=== PATIENT | male | born 1935 | race Caucasian/White ===

== ENCOUNTER → 2018-09-12 | Outpatient (CLI) | payer MEDICARE, SELFPAY ==
[2018-09-12 11:04] LABS: PSA,Total- Diagnostic 1.56 ng/mL (0.0-4.0)
== END | disposition home or self-care (01) ==
LOC: LAB 10:19
PROVIDERS: Family Provider Internal Medicine; PCP Internal Medicine; Referring Provider Urology; Visit Provider Urology
DX: N40.2 Nodular prostate without lower urinary tract symptoms (principal)
CPT/HCPCS: 36415; 84153

== ENCOUNTER 2018-12-02 08:15 | Day surgery (SDC) | payer MEDICARE, SELFPAY ==
[2018-11-25 10:14] VITALS: BP 122/67; PULSE 55; RESP 18; TEMP 36.6; O2SAT 97; BMI 26.9
[2018-12-02] VITALS (14 sets, daily range): BP systolic 97–135; BP diastolic 53–92; PULSE 58–79; RESP 16–18; TEMP 36.1–37.1; O2SAT 91–99; BMI 26.9
[2018-12-02] MEDS: Lactated Ringers 1,000 ML 75 ML IV ×2 (09:16→13:02)
[2018-12-02] MEDS: Cefazolin 2 GM in 0.9% Normal Saline 100 ML IV (10:58)
--- NOTE | 2018-12-02 12:11 | OP.PCM_ITS ---
Report of Operation Date of Procedure: 12/02/18 Pre-Operative Diagnosis: BPH with obstruction Post-Operative Diagnosis: The same Surgery/Procedure Performed:: Cystoscopy and greenlight laser vaporization of the prostate Description of Surgical Findings:: 83-year-old male with obstructive voiding on exam he has a very large obstructive prostate with a large median lobe bilateral hypertrophy presents today for greenlight laser of the prostate we talked about the options of management including observation continue medical therapy transurethral resection of the prostate simple prostatectomy after all the options were discussed with the patient he wanted to proceed with greenlight laser of the prostate. We discussed the risk of the procedure including failure to improve urinary symptoms, recurrent bleeding, scar tissue formation, regrowth of tissue causing obstruction. 83-year-old male taken back to the operating room after smooth induction of anesthesia he was placed in dorsolithotomy position the penis and testicles were prepped and draped in usual sterile fashion went into the urethra with a 23 Persian laser bridge using the dicer machine operator lens to get into the bladder and a minimal traumatic fashion, once inside the bladder identified a large obstructing median lobe lateral lobes identified the verumontanum identified the left and right ureteral orifice I then switched over to the greenlight laser and started lasering composite tissue laser the median lobe down to was flat laser the right lateral tissue left lateral tissue laser all the way back to the verumontanum very carefully laser the apical tissue and the roof of the prostate had a nice wide open channel I then did a flow test could get get a decent flow and then at this point we completed laser took about an hour to laser completely used over 300,000 W of energy for lasering. At the end of the case with a 20 Persian catheter into the bladder and the urine was nice and clear patient anesthetic is currently being reversed. We checked for the ureteral orifices at the end the case the left and right ureter orifice were uninjured at the end of the procedure and were still patent. Type of Anesthesia:: General Drains: rojas 20 fr - Admit VTE Documentation VTE Present on Admission: No
--- NOTE | 2018-12-02 12:17 | PCM.DC.URO ---
Discharge Diet: Light diet - advance as tolerated Discharge Activity: Return to Normal Activity Call your doctor if your incision/area has: Continuous Slow Oozing, Sudden Increased Bleeding, Increased Pain/ Swelling, Increased Redness Call your doctor if you observe: Fever of 101 or Higher Suture Line Care: Avoid Pulling/Pushing, Avoid Pinching/Bending Allergies/Adverse Reactions: Allergies Antihistamines - Alkylamine Adverse Reaction (Verified 11/25/18 10:06) Other ciprofloxacin Adverse Reaction (Verified 11/25/18 10:06) Upset Stomach hydrocodone Adverse Reaction (Verified 11/25/18 10:06) Upset Stomach tramadol Adverse Reaction (Verified 11/25/18 10:06) Upset Stomach Medications to take at Discharge Lisinopril [Zestril] 20 mg PO DAILY 01/04/15 Vit C/E/Zn/Coppr/Lutein/Zeaxan [Preservision Areds 2 Softgel] 1 each PO DAILY 01/04/15 Acetaminophen [Tylenol Extra Strength] 500 mg PO PRN PRN 02/15/17 Aspirin E.C. [Ecotrin] 81 mg PO MOWEFR 02/15/17 Ginkgo Biloba 60 mg PO DAILY 02/15/17 Cholecalciferol (Vitamin D3) [Vitamin D3] 5,000 unit PO DAILY 11/25/18 Finasteride [Proscar] 5 mg PO DAILY 11/25/18 [place]-3/Dha/Epa/Fish Oil [[place] 3 500 Softgel] 1 ea PO DAILY 11/25/18 Pyridoxine HCl [Vitamin B-6] 100 mg PO DAILY 11/25/18 Saw/Vit E/Sod Cassidy/Lyc/Beta/Pyg [Prostate Health Caplet] 1 ea PO DAILY 11/25/18 Wheat Dextrin [Benefiber] 1 ea PO BID 11/25/18 Primary Care Physician: Vianca Simpson [Primary Care Provider] - Test Results: Test results from this visit will be discussed in further detail at your follow-up appointment, if applicable. Please Follow Up With: Hong Coronado MD When: in 2 weeks, please call to make an appointment.
--- NOTE | 2018-12-02 13:15 | EKG12_ITS ---
Test Reason : Blood Pressure : / mmHG Vent. Rate : 079 BPM Atrial Rate : 079 BPM P-R Int : 246 ms QRS Dur : 126 ms QT Int : 438 ms P-R-T Axes : 073 -41 033 degrees QTc Int : 502 ms Sinus rhythm with 1st degree A-V block with frequent and consecutive Premature ventricular complexes Left axis deviation Non-specific intra-ventricular conduction block Abnormal ECG Confirmed by OSIEL GAMA, PRINCESS ([id number]), industrial editor BETTY MATHEW ([id number]) on 12/07/2018 1:11:51 PM Referred By: Hong Coronado Confirmed By:PRINCESS CARTAGENA MD
[2018-12-02 13:58] LABS: Albumin, Serum 3.3 g/dL (3.2-5.0); Anion Gap 7 (5-15); BUN 15 mg/dL (7-18); BUN/Creat Ratio 13.9 RATIO (10-20); Calcium,Total 8.8 mg/dL (8.5-10.1); Chloride 108 mmol/L (98-107); Creatinine, Serum 1.08 mg/dL (0.70-1.30); EST Glomerular Filtration Rate 70 mL/min (>60); Est Glom Filt Rate - Afr Amer 84 mL/min (>60); Estimated Creatinine Clearance 56.17 ml/min; Glucose 125 mg/dL (74-106); Magnesium 2.2 mg/dL (1.6-2.6); Potassium 4.5 mmol/L (3.5-5.1); Sodium Level 141 mmol/L (136-145)
[2018-12-02] MEDS: Acetaminophen 325 MG Tablet PO (15:06)
[2018-12-02] MEDS: 0.9% Normal Saline 1,000 ML 75 ML IV (15:07)
[2018-12-02] MEDS: Ciprofloxacin 400 MG/200 ML BAG 200 MG IV (21:12)
[2018-12-03] MEDS: Acetaminophen 325 MG Tablet PO ×2 (02:48→10:43)
[2018-12-03 03:45] VITALS: BP 105/68; PULSE 54; RESP 16; TEMP 36.4; O2SAT 96
[2018-12-03] MEDS: 0.9% Normal Saline 1,000 ML 75 ML IV (03:50)
--- NOTE | 2018-12-03 08:06 | PCM.PN.BLA ---
Progress Note Postoperative day 1 status post laser of the prostate he is doing well urine nice and clear we will have the nurses remove the catheter and will do a voiding trial. If he is able to void successfully several times without any problems probably can go home today.
[2018-12-03] MEDS: Multivitamin (Healthy Eyes) Capsule 1 CAP PO (09:19)
[2018-12-03] MEDS: Finasteride 5 MG Tablet PO (09:19)
[2018-12-03] MEDS: Pantoprazole Sodium 40 MG Tablet PO (09:19)
[2018-12-03] MEDS: Lisinopril 20 MG Tablet PO (09:20)
[2018-12-03] MEDS: Pyridoxine HCl 100 MG Tablet PO (09:20)
[2018-12-03] MEDS: Ciprofloxacin 400 MG/200 ML BAG 200 MG IV (09:22)
[2018-12-03 09:38] VITALS: BP 105/61; PULSE 60; RESP 16; TEMP 36.5; O2SAT 96
[2018-12-03 12:58] VITALS: BP 125/65; PULSE 55; RESP 16; TEMP 36.8; O2SAT 98
[2018-12-03] MEDS: oxyCODONE 5 MG Tablet PO (13:21)
== END 2018-12-03 14:02 | disposition home or self-care (01) ==
LOC: SDC 08:15 → AC 08:17 → MS3 11:58
PROVIDERS: Anesthesiology; Family Provider Internal Medicine; PCP Internal Medicine; Referring Provider Urology; Visit Provider Urology
PROC: 0V508ZZ Destruction of Prostate, Via Natural or Artificial Opening Endoscopic (ICD-10-PCS; CPT 52648; principal; 2018-12-02 10:15)
DX: R39.14 Feeling of incomplete bladder emptying (principal); N39.41 Urge incontinence; I10 Essential (primary) hypertension; Z79.899 Other long term (current) drug therapy; Z85.828 Personal history of other malignant neoplasm of skin
CPT/HCPCS: 52630; 36415; 80048; 82040; 83735; 84484; 93005; J7030; J7120; A4216; J0744; J2405

== ENCOUNTER → 2021-09-02 | Outpatient (CLI) | payer MEDICARE, SELFPAY ==
[2021-09-02 17:55] LABS: Absolute Lymphocyte Count 2.19 X10^3/uL (0.83-4.51); Absolute Neutrophil Count 5.5 X10^3/uL (2.0-7.7); Basophil# 0.03 X10^3/uL; Basophil% 0.3 % (0-1); Eosinophil# 0.05 X10^3/uL; Eosinophils% 0.6 % (0-5); Hematocrit 40.7 % (40-54); Hemoglobin 13.9 g/dL (13.0-16.5); Lymphocyte # 2.19 X10^3/ul (0.83-4.51); Lymphocyte % 25.4 % (19-41); Mean Corp Hgb Conc 34.2 g/dL (32-36); Mean Corpuscular Hgb 34.6 pg (27.0-32.0); Mean Corpuscular Volume 101.2 fL (80-94); Mean Platelet Vol. 11.7 fl (6.2-12.0); Monocyte# 0.84 X10^3/uL; Monocyte% 9.8 % (0-10); NRBC Flagged by Analyzer 0 % (0-5); Neutrophil # 5.48 X10^3/uL (2.7-7.7); Neutrophil % 63.7 % (47-70); Platelet Count 240 K/mm3 (150-450); RBC Distribution Width CV 14.2 % (11.6-14.6); RBC Distribution Width SD 51.6 fl (35.1-43.9); Red Blood Count 4.02 M/mm3 (4.6-6.2); White Blood Count 8.6 K/mm3 (4.4-11.0)
[2021-09-02 18:14] LABS: ALB/GLOB Ratio 0.8 RATIO (0.9-2.4); AST(SGOT) 19 U/L (15-37); Alanine Aminotransfer ALT/SGPT 23 U/L (16-61); Albumin, Serum 3.9 g/dL (3.2-5.0); Alkaline Phosphatase 102 U/L (45-117); Anion Gap 4 (5-15); BUN 16 mg/dL (7-18); BUN/Creat Ratio 18.5 RATIO (10-20); Calcium,Total 9.4 mg/dL (8.5-10.1); Chloride 103 mmol/L (98-107); Creatinine, Serum 0.86 mg/dL (0.70-1.30); EST Glomerular Filtration Rate 89 mL/min (>60); Est Glom Filt Rate - Afr Amer 108 mL/min (>60); Globulin 4.7 g/dL (2.2-4.2); Glucose 95 mg/dL (74-106); Magnesium 2.3 mg/dL (1.6-2.6); Phosphorus 3.6 mg/dL (2.5-4.9); Potassium 3.8 mmol/L (3.5-5.1); Protein, Total 8.6 g/dL (6.4-8.2); Sodium Level 136 mmol/L (136-145); T4 Free Direct 0.85 ng/dL (0.76-1.46); Thyroid Stim Hormone (TSH) 1.29 uIU/mL (0.358-3.74)
[2021-09-02 19:55] LABS: PTHIN 34.6 pg/mL (18.4-80.1)
[2021-09-03 10:30] LABS: Erythrocyte Sedimentation Rate 28 mm/hr (0-20)
== END | disposition home or self-care (01) ==
LOC: MTLAB 14:54
PROVIDERS: PCP Internal Medicine; Referring Provider Internal Medicine Rheumatology; Visit Provider Internal Medicine Rheumatology
DX: M17.0 Bilateral primary osteoarthritis of knee (principal); E83.110 Hereditary hemochromatosis; M21.41 Flat foot [pes planus] (acquired), right foot; H35.30 Unspecified macular degeneration; I10 Essential (primary) hypertension; K21.9 Gastro-esophageal reflux disease without esophagitis; I45.10 Unspecified right bundle-branch block; F41.9 Anxiety disorder, unspecified; G47.33 Obstructive sleep apnea (adult) (pediatric); K57.90 Diverticulosis of intestine, part unspecified, without perforation or abscess without bleeding; I83.93 Asymptomatic varicose veins of bilateral lower extremities; Z87.442 Personal history of urinary calculi
CPT/HCPCS: 36415; 80053; 83735; 83970; 84100; 84439; 84443; 85025; 85652; 86140

== ENCOUNTER 2021-12-01 11:34 | Emergency (ER) | payer MEDICARE, SELFPAY ==
[2021-12-01 11:37] VITALS: BP 141/99; PULSE 53; RESP 16; TEMP 36.2; O2SAT 98; BMI 25.1
--- NOTE | 2021-12-01 11:58 | EKG12_ITS ---
Test Reason : bradycardia Blood Pressure : / mmHG Vent. Rate : 051 BPM Atrial Rate : 051 BPM P-R Int : 244 ms QRS Dur : 160 ms QT Int : 486 ms P-R-T Axes : 063 -58 011 degrees QTc Int : 447 ms Sinus bradycardia with 1st degree A-V block Right bundle branch block Left anterior fascicular block Bifascicular block Possible Lateral infarct , age undetermined Cannot rule out Inferior infarct (masked by fascicular block?) , age undetermined Abnormal ECG Confirmed by OSIEL GAMA, PRINCESS ([id number]), editor city BETTY MATHEW ([id number]) on 12/03/2021 9:38:06 AM Referred By: Mian Confirmed By:PRINCESS CARTAGENA MD
--- NOTE | 2021-12-01 11:59 | EX.ED.DYSGE1 ---
HPI History of Present Illness Chief Complaint: Chest Pain Detail of Chief Complaint: Bradycardia Informant: patient and other Narrative Narrative: Patient sent to the ER by Dr. Ann. Patient was in the office today for routine blood work secondary to hemochromatosis. Patient had mentioned to nursing staff that he was nauseated this morning but seem to be improved. Initial heart rate was noted to be 30. I believe this was noted on checking radial pulse. By the time EKG was applied heart rate was up in the 50s. Patient denied any chest pain. He has a known history of right bundle branch block but on today's EKG noted a new left anterior fascicular block. Patient denies any complaints at this time. [facility] Medical History Hemochromatosis Hypertension Home Medications lisinopril 10 mg tablet 20 mg PO DAILY blood pressure 01/04/15 [History Last Taken 12/02/18 05:00] vit C 250 mg-vit E 90 mg-zinc 40 mg-copper 1 mi-aydpil-lkrplb capsule (PreserVision AREDS-2) 1 ea PO DAILY eyes 01/04/15 [History Last Taken 02/17/17] acetaminophen 500 mg tablet (Tylenol Extra Strength) 500 mg PO PRN PRN Pain 02/15/17 [History Last Taken Unknown] aspirin 81 mg tablet,delayed release 81 mg PO MOWEFR heart 02/15/17 [History Last Taken 02/15/17] ginkgo biloba 60 mg capsule 60 mg PO DAILY supplement 02/15/17 [History Last Taken 02/17/17] cholecalciferol (vitamin D3) 125 mcg (5,000 unit) tablet 5,000 unit PO DAILY supplement 11/25/18 [History Last Taken Unknown] finasteride 5 mg tablet 5 mg PO DAILY prostate 11/25/18 [History Last Taken Unknown] omega 6-fke-uam-fish oil 500 mg (200mg-300mg)-1,000 mg capsule 1 ea PO DAILY supplement 11/25/18 [History Last Taken Unknown] pyridoxine (vitamin B6) 100 mg tablet 100 mg PO DAILY supplement 11/25/18 [History Last Taken Unknown] saw palm 160 mg-vit E 100 unit-selen 100 scx-apqp-patpcs-pygeum tablet 1 ea PO DAILY supplement 11/25/18 [History Last Taken Unknown] wheat dextrin 3 gram/3.5 gram oral powder packet 1 ea PO BID 11/25/18 [History Last Taken Unknown] cephalexin 500 mg capsule 500 mg PO Q8 #14 caps 12/02/18 [Rx Last Taken Unknown] Allergy/AdvReac Type Severity Reaction Status Date / Time Antihistamines - Alkylamine AdvReac Other Verified 12/01/21 12:01 ciprofloxacin AdvReac Upset Verified 12/01/21 12:01 Stomach hydrocodone AdvReac Upset Verified 12/01/21 12:01 Stomach tramadol AdvReac Upset Verified 12/01/21 12:01 Stomach Social History Smoking Status: Never smoker ROS ROS ED Constitutional Constitutional ED: Denies chills or fever(s) Eyes Eyes: Denies change in vision or discharge from eye(s) ENT ENT ED: Denies discharge from eye(s), rhinorrhea or sore throat Cardiovascular Cardiovascular: Denies chest pain or palpitations Respiratory/Chest Respiratory/Chest: Denies cough or dyspnea Gastrointestinal Gastrointestinal: Reports nausea; Denies abdominal pain, diarrhea or vomiting Genitourinary Genitourinary ED: Denies difficulty urinating or dysuria Musculoskeletal Musculoskeletal: Denies back pain or extremity pain Integumentary Denies Abrasions or rash Neurologic Neurologic: Denies headache(s) or weakness Allergic/Immunologic Allergic/Immunologic ED: Denies lip swelling or urticaria EXAM Physical Exam Const Vital Signs: 12/01/21 11:37 12/01/21 12:01 12/01/21 12:01 Temperature 97.2 F L Temperature Source Temporal Pulse Rate 53 L 56 L Respiratory Rate 16 16 Respiratory Effort Normal Non-Labored Blood Pressure 141/99 H Blood Pressure Mean 113 Pulse Ox 98 95 Oxygen Delivery Method Room Air Room Air Positive well nourished and well developed General Appearance ED: well developed HEENT Reports normocephalic and head/scalp atraumatic Eyes PERRL and EOMs intact bilaterally Neck supple Chest Wall inspection of chest normal and palpation of chest normal Resp normal respiratory effort and clear to auscultation bilaterally Cardio regular rhythm Rate: bradycardia Heart Sounds: murmur GI normal to inspection, nondistended, normoactive bowel sounds Palpation: soft Back/Spine no CVA tenderness Extremity normal to inspection Neuro oriented x3 and no sensory deficits noted Sensorium / Orientation: alert Motor Exam: strength 5/5 throughout Psych mental status grossly normal Skin no rashes or lesions noted MDM MDM MDM Narrative Medical decision making narrative: Patient denies having any chest pain throughout this episode. EKG and lab work obtained. CBC was performed this morning at [facility] therefore not repeated at this time. White count is normal at 7.3 and hemoglobin is 14.1. Chemistry studies and troponin obtained today along with chest x-ray. Lab Data Attestation: I reviewed the patient's lab results. Labs: Laboratory Results - last 24 hr 12/01/21 12:08 Sodium 139 Potassium 4.1 Chloride 105 Carbon Dioxide 29.0 Anion Gap 5 BUN 18 Creatinine 1.06 Estim Creat Clear Calc 54.26 Est GFR (MDRD) Af Amer 85 Est GFR (MDRD) Non-Af 71 BUN/Creatinine Ratio 17.0 Glucose 96 Calcium 9.4 Troponin I High Sens 8 Radiography Chest X-Ray - ED: 1 View, Read by ED Physician, Chronic Changes and Cardiomegaly (Mild cardiomegaly) EKG Initial EKG: Attestation: I personally reviewed and interpreted this EKG as follows: Interpretation: Sinus Bradycardia (Sinus bradycardia 51 bpm. Bifascicular block appreciated. 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 The EKG obtained at the oncology office does reveal frequent PVCs. My suspicion is that these were not palpable and therefore his heart rate was read low with the 30s. He states he has had a heart rate in the 50s for quite some time. He denies any lightheadedness, dizziness, chest pain. Chemistry studies today are unremarkable with normal potassium. Troponin is normal at 8. Patient will be discharged home with . He is to follow-up with his primary care physician for further evaluation. Discharge Plan Triage Chief Complaint: Chest Pain ED Provider: Aleida Campos Dx/Rx/DC Orders Clinical Impression: Bradycardia Instructions: ED Bradycardia Prescriptions: No Action lisinopril 10 MG tablet 20 mg PO DAILY vit C,Q-Io-dywvs-lutein-zeaxan [PreserVision AREDS-2] 1 EACH capsule 1 ea PO DAILY aspirin 81 MG tablet 81 mg PO MOWEFR Label Comments: stop aspirin [address] rodriguez acetaminophen [Tylenol Extra Strength] 500 MG tablet 500 mg PO PRN PRN (Reason: Pain) ginkgo biloba 60 MG capsule 60 mg PO DAILY finasteride 5 MG tablet 5 mg PO DAILY Label Comments: prostate pyridoxine (vitamin B6) 100 MG tablet 100 mg PO DAILY omega 6-ifl-stf-fish oil 1 EACH capsule 1 ea PO DAILY cholecalciferol (vitamin D3) 5,000 UNIT tablet 5,000 unit PO DAILY wheat dextrin 1 EACH powder in packet 1 ea PO BID saw-vit E-sod zeu-hnn-iito-pyg 1 EACH tablet 1 ea PO DAILY cephalexin 500 MG capsule 500 mg PO Q8 Qty: 14 0RF Primary Care Provider: Vianca Simpson Referrals: Vianca Simpson MD [Primary Care Provider] - 1-2 Weeks Disposition Disposition: Home, Self Care
[2021-12-01 12:01] VITALS: PULSE 56; RESP 16; O2SAT 95
--- NOTE | 2021-12-01 12:05 | RAD_ITS ---
STUDY: X-RAY CHEST REASON FOR EXAM: Male, 86 years old. Bradycardia. TECHNIQUE: Single AP portable view of the chest. COMPARISON: None. FINDINGS: The lungs are clear and expanded. There is no demonstrated pleural abnormality. Normal size heart. Normal mediastinum and carmen. Normal visualized pulmonary arteries. There is atherosclerotic calcification of the aortic arch with tortuosity. There are degenerative changes and dextroscoliosis of the thoracic spine. Normal visualized ribs, clavicles, and shoulders. There is no demonstrated abnormality of the visualized soft tissue structures of the upper abdomen. RAD/Chest 1 View (Portable) IMPRESSION: Degenerative changes, as described above. No demonstrated acute cardiopulmonary process. Electronically Signed: Tiago Powell DO at 22:15 EDT ,
[2021-12-01 12:40] LABS: Anion Gap 5 (5-15); BUN 18 mg/dL (7-18); Calcium,Total 9.4 mg/dL (8.5-10.1); Chloride 105 mmol/L (98-107); Creatinine, Serum 1.06 mg/dL (0.70-1.30); EST Glomerular Filtration Rate 71 mL/min (>60); Est Glom Filt Rate - Afr Amer 85 mL/min (>60); Estimated Creatinine Clearance 54.26 ml/min; Glucose 96 mg/dL (74-106); Potassium 4.1 mmol/L (3.5-5.1); Sodium Level 139 mmol/L (136-145); Troponin-I HS 8 pg/mL (3.0-78.0)
[2021-12-01 13:08] VITALS: BP 158/84; PULSE 60; RESP 14; O2SAT 96
== END 2021-12-01 13:16 | disposition home or self-care (01) ==
PROVIDERS: Emergency Provider Emergency Medicine; PCP Internal Medicine; Visit Provider Emergency Medicine
DX: R00.1 Bradycardia, unspecified (principal); I10 Essential (primary) hypertension; E83.119 Hemochromatosis, unspecified; Z79.899 Other long term (current) drug therapy
CPT/HCPCS: 71045; 80048; 84484; 93005; 99284